=== PATIENT | female | born 1995 ===

== ENCOUNTER 2016-11-05 04:44 | Emergency (ER) | payer SELFPAY ==
[2016-11-05 05:01] VITALS: BP 148/60; PULSE 113; RESP 16; TEMP 98.7; O2SAT 100
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
== END 2016-11-05 05:30 | disposition home or self-care (01) ==
LOC: H.ER 04:44
DX: F10.129 Alcohol abuse with intoxication, unspecified (principal); Y90.9 Presence of alcohol in blood, level not specified